=== PATIENT | male | born 1995 | race Caucasian/White ===

== ENCOUNTER 2018-02-06 23:52 | Emergency (ER) | payer OTHER ==
[~2018-02-06] VITALS: Ht 175.3 cm; Wt 121.1 kg
--- NOTE | ~2018-02-06 | EKG ---
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
[2018-02-07] MEDS ORDERED: ZOFRAN ODT4 MG PO (01:43)
[2018-02-07 02:36] VITALS: BP 122/78
[2018-02-07 02:55] LABS: ABSOLUTE NEUTROPHILS 10.9 thou/uL (1.4-8.2); BASOPHILS 0.5 % (0.0-2.0); EOSINOPHILS 0.4 % (0.0-3.0); HEMATOCRIT 48.8 % (42.0-52.0); HEMOGLOBIN 16.7 gm/dL (14.0-18.0); LYMPHOCYTES 9.9 % (24.0-44.0); MCHC 34.3 g/dL (28.0-37.0); MCV 84.5 fL (80.0-100.0); MONOCYTES 6.3 % (1.0-8.0); PLATELET COUNT 303 thou/uL (150-400); POLYS 82.9 % (36.0-66.0); RBC 5.78 mil/uL (4.50-6.00); RDW 13.2 % (10.5-14.5); WBC 13.1 thou/uL (4.0-11.0)
[2018-02-07 03:01] LABS: CALCIUM 10.1 mg/dL (8.5-10.1); CREATININE 1.3 mg/dL (0.7-1.3); POTASSIUM 3.8 mmol/L (3.5-5.1)
== END 2018-02-07 03:40 | disposition home or self-care (01) ==
LOC: ER 23:52
PROVIDERS: Emergency Medicine
DX: I95.1 Orthostatic hypotension (principal); R42 Dizziness and giddiness; R11.0 Nausea; Z87.891 Personal history of nicotine dependence

== ENCOUNTER 2018-02-22 10:21 | Emergency (ER) | payer OTHER ==
[~2018-02-22] VITALS: Ht 167.6 cm; Wt 117.9 kg
--- NOTE | ~2018-02-22 | EKG ---
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
[~2018-02-22 10:21] MED LIST: ZOFRAN ODT4 MG PO
[2018-02-22 10:59] LABS: URINE BLOOD NEGATIVE (Negative); URINE CLARITY CLEAR; URINE COLOR YELLOW; URINE GLUCOSE-RANDOM* NEGATIVE (Negative); URINE KETONES NEGATIVE (Negative); URINE LEUKOCYTES-REFLEX NEGATIVE (Negative); URINE NITRITE-REFLEX NEGATIVE (Negative); URINE PROTEIN (DIPSTICK) NEGATIVE (Negative); URINE SPECIFIC GRAVITY 1.025 (1.005-1.035)
[2018-02-22] MEDS ORDERED: OXYBUTYNIN 5 MG5 M2 PO (11:04)
[2018-02-22] MEDS ORDERED: CETIRIZINE HCL10 MG PO (11:04)
[2018-02-22] MEDS ORDERED: SYNTHROID75 MCG PO (11:04)
[2018-02-22] MEDS ORDERED: ZANTAC 150MG T150 MG PO (11:04)
[2018-02-22] MEDS ORDERED: ESKALITH CR450 MG PO (11:05)
[2018-02-22] MEDS ORDERED: GUANFACINE HCL E2 MG PO (11:05)
[2018-02-22] MEDS ORDERED: CLOZAPINE ODT150 MG PO (11:06)
[2018-02-22] MEDS ORDERED: BUPROPION HCL200 MG PO (11:06)
[2018-02-22 11:16] LABS: ICTOTEST (BILI CONFIRMATORY) Negative (Negative); URINE BILIRUBIN NEGATIVE (Negative)
[2018-02-22 11:19] LABS: ABSOLUTE NEUTROPHILS 7.6 thou/uL (1.4-8.2); BASOPHILS 0.7 % (0.0-2.0); EOSINOPHILS 1.3 % (0.0-3.0); HEMATOCRIT 47.7 % (42.0-52.0); HEMOGLOBIN 16.4 gm/dL (14.0-18.0); LYMPHOCYTES 13.6 % (24.0-44.0); MCHC 34.3 g/dL (28.0-37.0); MCV 84.5 fL (80.0-100.0); MONOCYTES 5.1 % (1.0-8.0); PLATELET COUNT 282 thou/uL (150-400); POLYS 79.3 % (36.0-66.0); RBC 5.64 mil/uL (4.50-6.00); RDW 13.2 % (10.5-14.5); WBC 9.6 thou/uL (4.0-11.0)
[2018-02-22 11:27] LABS: ANION GAP 13 mmol/L (7-16); BUN 17 mg/dL (7-18); CALCIUM 10.1 mg/dL (8.5-10.1); CHLORIDE 102 mmol/L (98-107); CO2 23 mmol/L (21-32); CREATININE 1.3 mg/dL (0.7-1.3); GLUCOSE 114 mg/dL (74-106); POTASSIUM 4.1 mmol/L (3.5-5.1); SODIUM 138 mmol/L (136-145)
[2018-02-22 11:35] LABS: ALBUMIN 4.8 g/dL (3.4-5.0); LIPASE 118 U/L (73-393); SGOT 31 U/L (15-37); SGPT 52 U/L (30-65); TOTAL BILIRUBIN 0.8 mg/dL (<0.1-1.0); TOTAL PROTEIN 8.3 g/dL (6.4-8.2); TROPONIN-I < 0.04 ng/mL (<0.06)
[2018-02-22] MEDS ORDERED: MOBIC15 MG PO (11:42)
[2018-02-22 12:13] VITALS: BP 116/66
== END 2018-02-22 13:14 | disposition home or self-care (01) ==
LOC: ER 10:21
PROVIDERS: Physician Assistant
DX: R07.89 Other chest pain (principal); R10.30 Lower abdominal pain, unspecified; R06.02 Shortness of breath; Z87.891 Personal history of nicotine dependence

== ENCOUNTER 2018-06-29 14:56 | Emergency (ER) | payer OTHER ==
[~2018-06-29] VITALS: Ht 170.2 cm; Wt 122.5 kg
[~2018-06-29 14:56] MED LIST changes: +BUPROPION HCL200 MG PO; +CETIRIZINE HCL10 MG PO; +CLOZAPINE ODT150 MG PO; +ESKALITH CR450 MG PO; +GUANFACINE HCL E2 MG PO; +MOBIC15 MG PO; +OXYBUTYNIN 5 MG5 M2 PO; +SYNTHROID75 MCG PO; +ZANTAC 150MG T150 MG PO
[2018-06-29] MEDS ORDERED: SYNTHROID88 MCG PO (15:14)
[2018-06-29] MEDS ORDERED: OMEPRAZOLE 20 M20 M1 PO (15:15)
[2018-06-29] MEDS ORDERED: LITHIUM CARBON300 M3 PO (15:16)
[2018-06-29 15:39] VITALS: BP 131/92
[2018-06-29 16:41] LABS: ABSOLUTE NEUTROPHILS 9.3 thou/uL (1.4-8.2); BASOPHILS 0.7 % (0.0-2.0); EOSINOPHILS 1.5 % (0.0-3.0); HEMATOCRIT 48.5 % (42.0-52.0); HEMOGLOBIN 16.7 gm/dL (14.0-18.0); MCH 28.5 pg (26.0-34.0); MCHC 34.5 g/dL (28.0-37.0); MCV 82.7 fL (80.0-100.0); MONOCYTES 5.5 % (1.0-8.0); PLATELET COUNT 291 thou/uL (150-400); POLYS 77.3 % (36.0-66.0); RBC 5.86 mil/uL (4.50-6.00); RDW 12.8 % (10.5-14.5)
[2018-06-29 16:48] LABS: CALCIUM 10.2 mg/dL (8.5-10.1); CREATININE 1.2 mg/dL (0.7-1.3); POTASSIUM 3.8 mmol/L (3.5-5.1)
[2018-06-29 16:54] LABS: ALBUMIN 4.3 g/dL (3.4-5.0); DIRECT BILIRUBIN 0.2 mg/dL (<0.1-0.3); TOTAL BILIRUBIN 0.7 mg/dL (<0.1-1.0); TOTAL PROTEIN 8.3 g/dL (6.4-8.2)
[2018-06-29 17:18] LABS: URINE BLOOD NEGATIVE (Negative); URINE CLARITY CLEAR; URINE COLOR YELLOW; URINE GLUCOSE-RANDOM* NEGATIVE (Negative); URINE KETONES NEGATIVE (Negative); URINE LEUKOCYTES-REFLEX NEGATIVE (Negative); URINE NITRITE-REFLEX NEGATIVE (Negative); URINE PROTEIN (DIPSTICK) NEGATIVE (Negative); URINE SPECIFIC GRAVITY >= 1.030 (1.005-1.035); URINE UROBILINOGEN 0.2 E.U./dl (0.2-1.0)
[2018-06-29 17:23] LABS: ICTOTEST (BILI CONFIRMATORY) Negative (Negative); URINE BILIRUBIN NEGATIVE (Negative)
[2018-06-29] MEDS ORDERED: MIRALAX17 GM PO (17:42)
== END 2018-06-29 18:00 | disposition home or self-care (01) ==
LOC: ER 14:56
PROVIDERS: Emergency Medicine
DX: K59.00 Constipation, unspecified (principal); Z87.891 Personal history of nicotine dependence

== ENCOUNTER 2019-08-02 18:21 | Emergency (ER) | payer OTHER ==
[~2019-08-02] VITALS: Ht 167.6 cm; Wt 122.9 kg
[~2019-08-02 18:21] MED LIST changes: +LITHIUM CARBON300 M3 PO; +MIRALAX17 GM PO; +OMEPRAZOLE 20 M20 M1 PO; +SYNTHROID88 MCG PO
[2019-08-02] MEDS ORDERED: TESSALON PERLE100 MG PO (20:48)
[2019-08-02 22:25] VITALS: BP 139/79
== END 2019-08-02 22:26 | disposition home or self-care (01) ==
LOC: ER 18:21
DX: J06.9 Acute upper respiratory infection, unspecified (principal); F90.9 Attention-deficit hyperactivity disorder, unspecified type; F31.9 Bipolar disorder, unspecified; Z87.891 Personal history of nicotine dependence

== ENCOUNTER 2020-01-09 10:55 | Emergency (ER) | payer OTHER ==
[~2020-01-09] VITALS: Ht 175.3 cm; Wt 123.8 kg
[~2020-01-09 10:55] MED LIST changes: +TESSALON PERLE100 MG PO
[2020-01-09 11:34] LABS: ABSOLUTE NEUTROPHILS 3.6 thou/uL (1.4-8.2); BASOPHILS 0.8 % (0.0-2.0); EOSINOPHILS 1.7 % (0.0-3.0); HEMATOCRIT 47.8 % (42.0-52.0); HEMOGLOBIN 16.1 gm/dL (14.0-18.0); LYMPHOCYTES 23.5 % (24.0-44.0); MCHC 33.6 g/dL (28.0-37.0); MCV 83.2 fL (80.0-100.0); PLATELET COUNT 291 thou/uL (150-400); RBC 5.75 mil/uL (4.50-6.00); WBC 5.4 thou/uL (4.0-11.0)
[2020-01-09 11:42] LABS: ANION GAP 9 mmol/L (7-16); BUN 11 mg/dL (7-18); CALCIUM 9.5 mg/dL (8.5-10.1); CHLORIDE 101 mmol/L (98-107); CO2 26 mmol/L (21-32); CREATININE 1.1 mg/dL (0.7-1.3); GLUCOSE 132 mg/dL (74-106); SODIUM 136 mmol/L (136-145)
[2020-01-09 11:52] LABS: ALBUMIN 4.3 g/dL (3.4-5.0); SGOT 40 U/L (15-37); SGPT 72 U/L (30-65); TOTAL BILIRUBIN 0.5 mg/dL (<0.1-1.0); TOTAL PROTEIN 7.7 g/dL (6.4-8.2); TROPONIN-I <0.06 ng/mL (<0.06)
--- NOTE | 2020-01-09 13:09 | EKG ---
[facility] [place] [address] ELECTROCARDIOGRAM REPORT Name: AMRYLOU HYDE Room #: REG [facility].#: [id number] Admission: 01/09/20 Attend Phys: Discharge: Date of : [birth year] Report #: [id number] THIS REPORT FOR: cc: Luisito Mckeon Terry D. DO Couchonnal, Luis F. 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
[2020-01-09] MEDS ORDERED: VENTOLIN HFA 1818 GM INH (13:55)
[2020-01-09 14:01] VITALS: BP 131/84
== END 2020-01-09 14:01 | disposition home or self-care (01) ==
LOC: ER 10:55
PROVIDERS: Emergency Medicine Emergency Medical Services
DX: R06.02 Shortness of breath (principal); R07.89 Other chest pain; F41.9 Anxiety disorder, unspecified; F90.9 Attention-deficit hyperactivity disorder, unspecified type; Z87.891 Personal history of nicotine dependence